=== PATIENT | female | born 1955 | race Caucasian/White ===

== ENCOUNTER 2017-08-04 11:00 | Emergency (ER) | payer MEDICARE, OTHER ==
[2017-08-04] MEDS ORDERED: Ciprofloxacin 500 MG Tab ONE (12:10)
--- NOTE | 2017-08-04 14:43 | EDM.PDOC ---
ED HPI GENERAL MEDICAL PROBLEM - General Stated Complaint: UTI Time Seen by Provider: 08/04/17 11:55 Source of Information: Reports: Patient History Limitations: Reports: No Limitations - History of Present Illness INITIAL COMMENTS - FREE TEXT/NARRATIVE: Patient is a 62 year old woman with UTI symptoms of frequency, dysuria, painful urination and right flank pain. This has been getting worse in the last day. She lives in [place] and is visiting friends here in town. She use to live in [place]. She has no other complaints today. Onset: Gradual Onset Date: 08/03/17 Onset Time: 08:00 Duration: Day(s): (1), Getting Worse Location: Reports: Abdomen Quality: Reports: Ache, Sharp (When urinating.) Severity: Moderate Improves with: Reports: Other (Pushing fluids.) Worsens with: Reports: None Context: Reports: Other (History of 3, UTI's in last 2 months and she has Crohn' s Disease and a colostomy.) Associated Symptoms: Reports: No Other Symptoms Bilateral Abdominal Pain Score (Numeric/FACES): 5 ED ROS GENERAL - Review of Systems Review Of Systems: See Below Constitutional: Reports: No Symptoms HEENT: Reports: No Symptoms Respiratory: Reports: No Symptoms Cardiovascular: Reports: No Symptoms Endocrine: Reports: No Symptoms GI/Abdominal: Reports: Abdominal Pain : Reports: Dysuria, Flank Pain, Frequency, Pain Musculoskeletal: Reports: Back Pain Skin: Reports: No Symptoms Neurological: Reports: No Symptoms Psychiatric: Reports: No Symptoms Hematologic/Lymphatic: Reports: No Symptoms Immunologic: Reports: No Symptoms ED EXAM, GENERAL - Physical Exam Exam: See Below Exam Limited By: No Limitations General Appearance: Alert, WD/WN, No Apparent Distress Eye Exam: Bilateral Eye: EOMI, Normal Fundi, Normal Inspection, PERRL Ears: Normal External Exam, Normal Canal, Hearing Grossly Normal, Normal TMs Ear Exam: Bilateral Ear: Auricle Normal, Canal Normal, TM normal Nose: Normal Inspection, Normal Mucosa, No Blood Throat/Mouth: Normal Inspection, Normal Lips, Normal Teeth, Normal Gums, Normal Oropharynx, Normal Voice, No Airway Compromise Head: Atraumatic, Normocephalic Neck: Normal Inspection, Supple, Non-Tender, Full Range of Motion Respiratory/Chest: No Respiratory Distress, Lungs Clear, Normal Breath Sounds, No Accessory Muscle Use, Chest Non-Tender Cardiovascular: Normal Peripheral Pulses, Regular Rate, Rhythm, No Edema, No Gallop, No JVD, No Murmur, No Rub Peripheral Pulses: 3+: Posterior Tibial (L), Posterior Tibial (R), Dorsalis Pedis (L), Dorsalis Pedis (R) GI/Abdominal: Normal Bowel Sounds, Soft, Non-Tender, No Organomegaly, No Distention, No Abnormal Bruit, No Mass (Female) Exam: Other (Right Flank Pain) Back Exam: CVA Tenderness (R) Extremities: Normal Inspection, Normal Range of Motion, Non-Tender, Normal Capillary Refill, No Pedal Edema Neurological: Alert, Oriented, CN II-XII Intact, Normal Cognition, Normal Gait, Normal Reflexes, No Motor/Sensory Deficits Psychiatric: Normal Affect, Normal Mood Skin Exam: Warm, Dry, Intact, Normal Color, No Rash Course - Vital Signs Text/Narrative:: Patient had a unremarkable ED stay. Her UA showed a UTI and her CBC was normal. Her urine will be cultured. She was therefore given Cipro 500 mg orally two times daily for 10 days, #20. She will push fluids and cranberry juice, take tylenol 500 mg po q 4 hours and she will follow up with her PCP and with Urology next week due to the increased frequency of these bladder infections. Last Recorded V/S: Last Vital Signs Temp 36.8 C 08/04/17 11:48 Pulse 61 08/04/17 11:48 Resp 16 08/04/17 11:48 BP 139/82 08/04/17 11:48 Pulse Ox 96 08/04/17 11:48 - Orders/Labs/Meds Orders: Active Orders 24 hr Category Date Time Status CULTURE URINE [RM] Stat Lab 08/04/17 11:30 Received URINALYSIS W/MICROSCOPIC [UA W/MICROSCOPIC] [URIN] Stat Lab 08/04/17 11:30 Ordered Labs: Laboratory Tests 08/04/17 08/04/17 Range/Units 11:30 11:50 WBC 8.1 (4.0-11.0) K/uL RBC 4.63 (3.80-5.80) M/uL Hgb 15.1 (11.5-16.5) g/dL Hct 44.5 (37.0-47.0) % MCV 96 (76-96) fL MCH 32.6 H (27.0-32.0) pg MCHC 33.9 (31.0-35.0) g/dL RDW 13.6 (11.0-16.0) % Plt Count 186 (150-500) K/uL MPV 9.9 (6.0-10.0) fL Neut % (Auto) 69.6 (45.0-70.0) % Lymph % (Auto) 19.1 L (20.0-40.0) % Levy % (Auto) 7.2 (3.0-10.0) % Eos % (Auto) 3.7 (1.0-5.0) % Baso % (Auto) 0.4 (0.0-0.5) % Neut # (Auto) 5.60 (2.00-7.50) K/uL Lymph # (Auto) 1.54 (1.50-4.00) K/uL Levy # (Auto) 0.58 (0.20-0.80) K/uL Eos # (Auto) 0.30 (0.04-0.40) K/uL Baso # (Auto) 0.03 (0.02-0.10) K/uL Urine Color Brown Urine Appearance Cloudy (CLEAR) Urine pH 6.0 (5.0-8.0) Ur Specific [place] 1.020 (1.003-1.030) Urine Protein 100 H (NEGATIVE) mg/dL Urine Glucose (UA) Negative (NEGATIVE) mg/dL Urine Ketones Negative (NEGATIVE) mg/dL Urine Occult Blood Large H (NEGATIVE) Urine Nitrite Positive H (NEGATIVE) Urine Bilirubin Small H (NEGATIVE) Urine Urobilinogen 0.2 (0.2-1.0) E.U./dL Ur Leukocyte Esterase Small H (NEGATIVE) Urine RBC Packed H /HPF Urine WBC Semi-packed H /HPF Ur Squamous Epith Cells Occasional /HPF Urine Bacteria Moderate H /HPF Departure - Departure Time of Disposition: 14:47 Disposition: Home, Self-Care 01 Condition: Good Clinical Impression: UTI (urinary tract infection) - Discharge Information Instructions: Urinary Tract Infection, Adult Referrals: PCP,None [Primary Care Provider] - Care Plan Goals: Take medications as directed. Return if symptoms persist or if you start having a fever. Push fluids. - My Orders Last 24 Hours: My Active Orders 08/04/17 11:30 CULTURE URINE [RM] Stat URINALYSIS W/MICROSCOPIC [UA W/MICROSCOPIC] [URIN] Stat - Assessment/Plan Last 24 Hours: My Active Orders 08/04/17 11:30 CULTURE URINE [RM] Stat URINALYSIS W/MICROSCOPIC [UA W/MICROSCOPIC] [URIN] Stat
== END 2017-08-04 12:15 | disposition home or self-care (01) ==
LOC: LB.ED 11:00
DX: N39.0 Urinary tract infection, site not specified (principal)
CPT/HCPCS: 36415; 81001; 85025; 87086; 87088; 87186; 99283; A9270-GY

== ENCOUNTER 2020-05-04 12:45 | Emergency (ER) | payer MEDICARE ==
--- NOTE | 2020-05-04 14:23 | EDM.PDOC ---
ED HPI GENERAL MEDICAL PROBLEM - General Chief Complaint: General Stated Complaint: COLOSTOMY BAG PLUGGED Time Seen by Provider: 05/04/20 13:35 Source of Information: Reports: Patient History Limitations: Reports: No Limitations - History of Present Illness INITIAL COMMENTS - FREE TEXT/NARRATIVE: 65 year old female with PMH crohns, rectal CA, colostomy(2010, revised in 2016), presents to ED with increased rectal/abdominal pain and bleeding. She states that this has been an issue since January and she has been trying to see GI without any luck. She has tried to remove the "sludge" in her rectum manually and with suppositories without success. She feels there is a "ball of sludge" in her rectum. She has had BRBPR intermittently since January. Denies any cough, fever, SOB, CP, N/V/D or urinary symptoms. . states the colostomy has had normal output. 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 Other Gastrointestinal History: history of cancer and chrohns disease - Past Surgical History GI Surgical History: Reports: Colostomy, Hernia, Abdominal Social & Family History - Tobacco Use Tobacco Use Status *Q: Current Every Day Tobacco User Years of Tobacco use: 40 Packs/Tins Daily: 1 - Caffeine Use Caffeine Use: Reports: Coffee - Recreational Drug Use Recreational Drug Use: No ED ROS GENERAL - Review of Systems Review Of Systems: See Below Constitutional: Reports: No Symptoms HEENT: Reports: No Symptoms Respiratory: Reports: No Symptoms Cardiovascular: Reports: No Symptoms Endocrine: Reports: No Symptoms GI/Abdominal: Reports: Mucous in Stool (per rectum, no mucus noted in colostomy bag) : Reports: No Symptoms Musculoskeletal: Reports: No Symptoms Skin: Reports: No Symptoms Neurological: Reports: No Symptoms Psychiatric: Reports: No Symptoms ED EXAM, GENERAL - Physical Exam Exam: See Below Exam Limited By: No Limitations General Appearance: Alert, Mild Distress Ears: Normal External Exam Head: Atraumatic Neck: Normal Inspection, Full Range of Motion Respiratory/Chest: No Respiratory Distress, Lungs Clear, Normal Breath Sounds Cardiovascular: Regular Rate, Rhythm, No Murmur GI/Abdominal: Normal Bowel Sounds, Tender Rectal (Female) Exam: Normal Exam, Tenderness, Other (internal rectal exam not performed due to pain and bleeding, external rectal exam unremarkable) Back Exam: Normal Inspection, Full Range of Motion. No: CVA Tenderness (R), CVA Tenderness (L) Extremities: Normal Inspection, Normal Range of Motion, Non-Tender Neurological: Alert, Oriented, Normal Cognition Psychiatric: Normal Affect, Normal Mood Skin Exam: Warm, Dry, Intact Lymphatic: No Adenopathy Course - Vital Signs Last Recorded V/S: Last Vital Signs Temp 98.6 F 05/04/20 13:08 Pulse 65 05/04/20 13:57 Resp 16 05/04/20 13:57 BP 150/74 H 05/04/20 13:57 Pulse Ox 97 05/04/20 13:57 - Orders/Labs/Meds Orders: Active Orders 24 hr Category Date Time Status Abdomen Pelvis wo Cont [CT] Stat Exams 05/04/20 14:05 Taken CORONAVIRUS COVID-19 RAPID [MOLEC] Stat Lab 05/04/20 15:21 Ordered UA RFX SUKUMAR AND CULT IF INDIC [URIN] Stat Lab 05/04/20 14:49 Ordered Labs: Laboratory Tests 05/04/20 05/04/20 Range/Units 14:15 14:15 WBC 8.1 (4.0-11.0) K/uL RBC 4.57 (3.80-5.80) M/uL Hgb 15.2 (11.5-16.5) g/dL Hct 45.3 (37.0-47.0) % MCV 99 H (76-96) fL MCH 33.3 H (27.0-32.0) pg MCHC 33.6 (31.0-35.0) g/dL RDW 13.4 (11.0-16.0) % Plt Count 222 (150-500) K/uL MPV 9.9 (6.0-10.0) fL Sodium 145 (136-145) mmol/L Potassium 3.8 (3.5-5.1) mmol/L Chloride 107 (98-107) mmol/L Carbon Dioxide 30.4 (21.0-32.0) mmol/L Anion Gap 11.4 (5.0-15.0) mmol/L BUN 12 (8-26) mg/dL Creatinine 0.89 (0.55-1.02) mg/dL Est Cr Clr Drug Dosing 51.17 mL/min Estimated GFR (MDRD) > 60 (>60) MLS/MIN BUN/Creatinine Ratio 13.5 (6-25) Glucose 80 (74-100) mg/dL Calcium 9.2 (8.5-10.1) mg/dL Total Bilirubin 0.7 (0.0-1.0) mg/dL AST 14 L (15-37) U/L ALT 26 (12-78) U/L Alkaline Phosphatase 73 (46-116) U/L Total Protein 7.2 (6.4-8.2) g/dL Albumin 3.4 (3.4-5.0) g/dL Globulin 3.8 (2.2-4.2) g/dL Albumin/Globulin Ratio 0.9 (0.8-2.0) Departure - Departure Time of Disposition: 15:36 Disposition: DC/Tfer to Hospice-Med Fac 51 Preliminary Cause of *Q: Cardiac Arrest Clinical Impression: Rectal bleed, Rectal pain, Lower abdominal pain, unspecified - Discharge Information *PRESCRIPTION DRUG MONITORING PROGRAM REVIEWED*: Not Applicable *COPY OF PRESCRIPTION DRUG MONITORING REPORT IN PATIENT PETER: Not Applicable Referrals: Isabela Soares NP [Primary Care Provider] - Forms: ED Department Discharge Sepsis Event Note (ED) - Evaluation Sepsis Screening Result: No Definite Risk - Focused Exam Vital Signs: Vital Signs Temp Pulse Resp BP Pulse Ox 05/04/20 13:57 65 16 150/74 H 97 05/04/20 13:08 98.6 F 57 L 16 148/74 H 96 - My Orders Last 24 Hours: My Active Orders 05/04/20 14:05 Abdomen Pelvis wo Cont [CT] Stat 05/04/20 14:49 UA RFX SUKUMAR AND CULT IF INDIC [URIN] Stat 05/04/20 15:21 CORONAVIRUS COVID-19 RAPID [MOLEC] Stat - Assessment/Plan Last 24 Hours: My Active Orders 05/04/20 14:05 Abdomen Pelvis wo Cont [CT] Stat 05/04/20 14:49 UA RFX SUKUMAR AND CULT IF INDIC [URIN] Stat 05/04/20 15:21 CORONAVIRUS COVID-19 RAPID [MOLEC] Stat Plan: Called [facility] for Transfer, spoke with Dr. George, he will accept the patient onto the obs unit [facility] unable to take patient due to sporadic GI coverage, patient had her colostomy revision at [place] in 2016. CT scan shows a large periostomal hernia containing the distal and transverse colon and splenic fixture, and multiple loops of small bowel. A couple of these do contain air-fluid levels. They are not dialated. No definate evidence for obstruction noted with it. Subtle fat stranding of peritoneal fat within the hernia. Mild strangulation cannot be excluded. Incidental finding of 4 cm fluid denisity in the left ovary region. Radiology states is is most likely an ovarian cyst, but follow up US is needed for diagnosis.
--- NOTE | 2020-05-04 15:44 | CT ---
DATE OF SERVICE: 05/04/2020 CLINICAL DATA: Rectal mucus with bleeding Unenhanced abdomen and pelvic CT: Multi slice axial acquisition without IV or oral contrast was performed. There are minimal atelectatic change is both lung bases. The lung bases are otherwise clear. The heart size is normal. The liver is normal size with homogeneous attenuation. No focal hepatic lesions. The gallbladder is mildly distended. No calcified gallstones. No pericholecystic fluid. The spleen appears normal. The pancreas appears normal. There is a 14 mm low-density lesion in the left adrenal which is most likely benign. The right adrenal appears normal. The right and left kidneys appear normal. No nephrocalcinosis or nephrolithiasis. No hydronephrosis or hydroureter. There is a small amount of fluid within the bladder. it appears grossly normal. The patient is status post hysterectomy. There is a 4.0 cm full oval-shaped fluid density lesion in the region of the left ovary and adnexa most likely representing an ovarian cyst. Cystic ovarian neoplasm should be considered. Follow-up ultrasound to confirm resolution or persistence is recommended. No evidence of appendicitis. There is an ostomy in the anterior abdominal wall on the left. There is a large peristomal hernia containing the distal transverse colon and splenic flexure. It also contains multiple loops of small bowel. A couple of these do contain air-fluid levels. They are not dilated. No definite evidence for obstruction associated with it. Follow-up imaging is recommended if clinically indicated. There is also very subtle fat stranding of the peritoneal fat within the hernia. Mild strangulation cannot be excluded. There is also minimal fat stranding adjacent to the sigmoid stump on the left pelvis. Localized infectious or inflammatory process cannot be excluded. No free air. No free fluid. No adenopathy. No dilated loops of bowel. No aortic aneurysm. There is a fat containing umbilical hernia. There is degenerative disc disease at multiple levels in the lumbar spine. No other significant findings. MTDD
== END 2020-05-04 16:10 | disposition hospice, inpatient (51) ==
LOC: LB.ED 12:45
DX: K62.5 Hemorrhage of anus and rectum (principal); J45.909 Unspecified asthma, uncomplicated; Z85.048 Personal history of other malignant neoplasm of rectum, rectosigmoid junction, and anus; Z72.0 Tobacco use; Z20.822 Contact with and (suspected) exposure to COVID-19
CPT/HCPCS: 36415; 74176; 80053; 81001; 85027; 99284-25; 99285; A0425; A0429; U0002

== ENCOUNTER 2020-09-11 08:46 | Emergency (ER) | payer MEDICARE ==
[2020-09-11] MEDS ORDERED: Sodium Chloride 0.9% 10 ML Syringe FLUSH PRN (09:14)
--- NOTE | 2020-09-11 09:15 | EDM.PDOC ---
ED HPI GENERAL MEDICAL PROBLEM - General Chief Complaint: General Stated Complaint: POSSIBLE STOMA INFECTION Time Seen by Provider: 09/11/20 09:15 Source of Information: Reports: Patient History Limitations: Reports: No Limitations - History of Present Illness INITIAL COMMENTS - FREE TEXT/NARRATIVE: patient presented to the ER with a c/o stomal pain. h/o CD, and rectal cancer. Underwent stoma creation in 2010 with a revision in 2015. 4 months ago, was diagnosed with a peristomal hernia,, and last month underwent a revision of her stoma - with creation of a new stoma. She returns today due to mild/moderate discomfort around the stoma and reports a small opening on the side. No fever but some chills. Normal stomal output and PO intake. pain is 4-5 out of 10 and worse when she touches it. 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 Other Gastrointestinal History: history of cancer and chrohns disease - Past Surgical History GI Surgical History: Reports: Colostomy, Hernia, Abdominal Social & Family History - Caffeine Use Caffeine Use: Reports: Coffee ED ROS GENERAL - Review of Systems Review Of Systems: See Below Constitutional: Reports: No Symptoms HEENT: Reports: No Symptoms Respiratory: Reports: No Symptoms Cardiovascular: Reports: No Symptoms GI/Abdominal: Reports: Abdominal Pain : Reports: No Symptoms Skin: Reports: No Symptoms Neurological: Reports: No Symptoms Psychiatric: Reports: No Symptoms ED EXAM, GI/ABD - Physical Exam Exam: See Below Exam Limited By: No Limitations General Appearance: Alert, WD/WN, No Apparent Distress Respiratory/Chest: No Respiratory Distress, Lungs Clear Cardiovascular: Normal Peripheral Pulses, Regular Rate, Rhythm GI/Abdominal Exam: Soft, Other (mild TTP around the stoma - no drainage, but there is evidence of wound dehisence in a small around around the stoma on the left side. no pus or blood, but covered with slough yellow tissue) Neurological: Alert, Oriented, No Motor/Sensory Deficits Course - Vital Signs Last Recorded V/S: Last Vital Signs Temp 36.8 C 09/11/20 09:29 Pulse 68 09/11/20 09:29 Resp 16 09/11/20 09:29 BP 125/68 09/11/20 09:29 Pulse Ox 96 09/11/20 09:29 - Orders/Labs/Meds Orders: Active Orders 24 hr Category Date Time Status Abdomen Pelvis wo Cont [CT] Stat Exams 09/11/20 09:54 Taken Sodium Chloride 0.9% [Saline Flush] Med 09/11/20 09:14 Active 10 ml FLUSH ASDIRECTED PRN Saline Lock Insert [OM.PC] Routine Oth 09/11/20 09:14 Ordered Medication Orders Sodium Chloride (Sodium Chloride 0.9% 10 Ml Syringe) 10 ml FLUSH ASDIRECTED PRN PRN Reason: Keep Vein Open Last Admin: 09/11/20 09:30 Dose: 10 ml Documented by: RANDY Labs: Laboratory Tests 09/11/20 09/11/20 Range/Units 09:35 09:35 WBC 8.3 (4.0-11.0) K/uL RBC 4.02 (3.80-5.80) M/uL Hgb 13.1 (11.5-16.5) g/dL Hct 39.6 (37.0-47.0) % MCV 99 H (76-96) fL MCH 32.6 H (27.0-32.0) pg MCHC 33.1 (31.0-35.0) g/dL RDW 13.7 (11.0-16.0) % Plt Count 286 D (150-500) K/uL MPV 9.7 (6.0-10.0) fL Sodium 143 (136-145) mmol/L Potassium 3.7 (3.5-5.1) mmol/L Chloride 107 (98-107) mmol/L Carbon Dioxide 29.3 (21.0-32.0) mmol/L Anion Gap 10.4 (5.0-15.0) mmol/L BUN 14 (8-26) mg/dL Creatinine 0.88 (0.55-1.02) mg/dL Est Cr Clr Drug Dosing TNP Estimated GFR (MDRD) > 60 (>60) MLS/MIN BUN/Creatinine Ratio 15.9 (6-25) Glucose 104 H (74-100) mg/dL Calcium 8.9 (8.5-10.1) mg/dL Meds: Medications Generic Name Dose Route Start Last Admin Trade Name Maggie PRN Reason Stop Dose Admin Sodium Chloride 10 ml 09/11/20 09:14 09/11/20 09:30 Sodium Chloride 0.9% 10 Ml Syringe FLUSH 10 ml ASDIRECTED PRN Administration Keep Vein Open Discontinued Medications Generic Name Dose Route Start Last Admin Trade Name Maggie PRN Reason Stop Dose Admin Ciprofloxacin 500 mg 09/11/20 11:36 09/11/20 12:10 Ciprofloxacin 500 Mg Tab PO 09/11/20 11:37 500 mg ONETIME ONE Administration Metronidazole 500 mg 09/11/20 11:36 09/11/20 12:10 Metronidazole 500 Mg Tab PO 09/11/20 11:37 500 mg ONETIME ONE Administration Metronidazole Confirm 09/11/20 12:22 Metronidazole 500 Mg Tab Administered 09/11/20 12:23 Dose 500 mg .ROUTE .STK-MED ONE - Re-Assessments/Exams Free Text/Narrative Re-Assessment/Exam: vitals WNL labs were ordered - no leukocytosis physical exam showed an intact healthy looking stoma, but the surrounding tissue on the left side are showing e/o yellow slough tissue, with a possible small wound dehiscence. intact sutures, no pus but slough yellow tissue. CT abd/pelv showed - e/o stomal colitis with SQ tissue edema in the left side. no abscess. Small bowel enteritis. local bed side wound debridement was performed - slough tissues were removed - wound was cleaned and bacitracin was applied - new stoma bag was applied given the clinical and CT findings - will start patient on PO cipro/flagyl antibiotics. called [facility] to speak with the surgeon on-call - who reviewed the images - and agreed with treatment course and recommended that she contact her surgeon early next week Departure - Departure Time of Disposition: 12:50 Disposition: Home, Self-Care 01 Condition: Good Clinical Impression: Colostomy complication, Enteritis Wound dehiscence, surgical Qualifiers: Encounter type: initial encounter Qualified Code(s): T81.31XA - Disruption of external operation (surgical) wound, not elsewhere classified, initial encounter - Discharge Information *PRESCRIPTION DRUG MONITORING PROGRAM REVIEWED*: Not Applicable *COPY OF PRESCRIPTION DRUG MONITORING REPORT IN PATIENT PETER: Not Applicable Referrals: PCP,None [Primary Care Provider] - Forms: ED Department Discharge Sepsis Event Note (ED) - Focused Exam Vital Signs: Vital Signs Temp Pulse Resp BP Pulse Ox 09/11/20 09:29 36.8 C 68 16 125/68 96 - Problem List & Annotations (1) Lower abdominal pain, unspecified SNOMED Code(s): 61896999 Code(s): R10.30 - LOWER ABDOMINAL PAIN, UNSPECIFIED Status: Acute Priority: Low Current Visit: No (2) Colostomy complication SNOMED Code(s): 96012377864329 Code(s): K94.00 - COLOSTOMY COMPLICATION, UNSPECIFIED Status: Acute Priority: Low Current Visit: Yes (3) Enteritis SNOMED Code(s): 44716614 Code(s): K52.9 - NONINFECTIVE GASTROENTERITIS AND COLITIS, UNSPECIFIED Status: Acute Priority: Low Current Visit: Yes (4) Wound dehiscence, surgical SNOMED Code(s): 296100167 Code(s): T81.31XA - DISRUPTION OF EXTERNAL OPERATION (SURGICAL) WOUND, NEC, INIT Status: Acute Priority: Low Current Visit: Yes Qualifiers: Encounter type: initial encounter Qualified Code(s): T81.31XA - Disruption of external operation (surgical) wound, not elsewhere classified, initial encounter - Problem List Review Problem List Initiated/Reviewed/Updated: Yes - My Orders Last 24 Hours: My Active Orders 09/11/20 09:14 Sodium Chloride 0.9% [Saline Flush] 10 ml FLUSH ASDIRECTED PRN Saline Lock Insert [OM.PC] Routine 09/11/20 09:54 Abdomen Pelvis wo Cont [CT] Stat - Assessment/Plan Last 24 Hours: My Active Orders 09/11/20 09:14 Sodium Chloride 0.9% [Saline Flush] 10 ml FLUSH ASDIRECTED PRN Saline Lock Insert [OM.PC] Routine 09/11/20 09:54 Abdomen Pelvis wo Cont [CT] Stat Plan: - recommend to contact your surgeon and stoma nurse early next week - start taking the antibiotics as prescribed - resume stoma dressing changes as before - return to the ER if any concerns
[2020-09-11] MEDS ORDERED: Ciprofloxacin 500 MG Tab PO ONE (11:36)
[2020-09-11] MEDS ORDERED: metroNIDAZOLE 500 MG Tab PO ONE (11:36)
[2020-09-11] MEDS ORDERED: metroNIDAZOLE 500 MG Tab ONE (12:22)
--- NOTE | 2020-09-12 07:45 | CT ---
Date of Service: 09/11/20 Clinical Data: stomal complication UNENHANCED ABDOMEN AND PELVIC CT: Multislice acquisition through the abdomen and pelvis without IV or oral contrast was performed. Comparison is made to a prior abdomen and pelvic CT dated 05/04/20. There is a 5 mm subpleural nodule in the left lung base laterally. I do not see it on the prior exam, however, prior exam does not appear to include this segment of the lung. There are atelectatic changes in the changes in the dependent portion of both lungs and in the right lower lobe laterally. The lungs are otherwise clear. No pleural effusions. The heart size is normal. The unenhanced liver appears normal. The gallbladder appears normal. The spleen appears normal. The pancreas appears normal. The right and left adrenals appear normal. The right and left kidneys appear normal. No nephrocalcinosis or nephrolithiasis. No hydronephrosis or hydroureter. The bladder is partially fluid filled. It appears normal. Patient is status post left hemicolectomy and there is an ostomy in the anterior abdominal wall on the left. A large ventral hernia on the prior exam has been reduced. There is thickening of the colon wall within the ostomy. The is also adjacent fat stranding. There is also subcutaneous fat stranding adjacent to the anterior abdominal wall on the left and flank region on the left. There is a small subcue gas collection. There are multiple fluid filled loops of small bowel within the lower abdomen and pelvis that contain air-fluid levels. A couple of these are mildly dilated. I do not see a definite transition point. No free air. No free fluid. No adenopathy. No aortic aneurysm. IMPRESSION: 1. Status post left hemicolectomy with a stoma in the left anterior abdominal wall. There is thickening of the bowel wall within the stoma and there is adjacent fat stranding. An infectious process should be considered. There is also a very small gas collection within the anterior abdominal wall laterally on the left. 2. Multiple gas-filled loops of small bowel in lower abdomen and pelvis with air-fluid levels. A couple are mildly dilated. Localized ileus or early or partial obstruction should be considered. 3. There is mild mesenteric edema. Again, infection should be considered. 4. 5 mm subpleural nodule left lung base. If the patient is high risk, a 12- month followup CT is recommended. If the patient is low risk, no followup required. [id number] [facility]
== END 2020-09-11 13:03 | disposition home or self-care (01) ==
LOC: LB.ED 08:46
DX: T81.31XA Disruption of external operation (surgical) wound, not elsewhere classified, initial encounter (principal); K52.9 Noninfective gastroenteritis and colitis, unspecified; J45.909 Unspecified asthma, uncomplicated; F17.200 Nicotine dependence, unspecified, uncomplicated; Z91.041 Radiographic dye allergy status
CPT/HCPCS: 36415; 74176; 80048; 85027; 99284; 99284-25; A9270-GY

== ENCOUNTER 2021-05-23 19:53 | Observation (INO) | payer MEDICARE ==
[2021-05-23] MEDS ORDERED: Ondansetron 4 MG/2 ML SDV IVPUSH ONE (20:45)
[2021-05-23] MEDS ORDERED: HYDROmorphone 2 MG/ML SDV IVPUSH ONE (20:45)
[2021-05-24] MEDS ORDERED: Sodium Chloride 0.9% 1,000 ML IV ONE (00:01)
[2021-05-24] MEDS ORDERED: Nicotine 21 MG/24 Hr Patch TRDERM ONE (00:05)
[2021-05-24] MEDS ORDERED: D5 1/2 NS w/ 20 mEq/L KCl 1,000 ML ONE (00:54)
[2021-05-24] MEDS: D5 1/2 NS w/ 20 mEq/L KCl 1,000 ML IV SCH ×3 (01:10→14:45)
[2021-05-24] MEDS: Ondansetron 4 MG/2 ML SDV IVPUSH PRN ×3 (02:45→12:58)
[2021-05-24] MEDS: HYDROmorphone 2 MG/ML SDV IVPUSH PRN ×3 (03:00→07:18)
[2021-05-24] MEDS ORDERED: Sodium Chloride 0.9% 10 ML Syringe FLUSH PRN (05:04)
[2021-05-24] MEDS ORDERED: HYDROmorphone 2 MG/ML SDV IVPUSH PRN (12:50)
== END 2021-05-24 22:00 | disposition left against medical advice (07) ==
LOC: LB.ED 19:53 → LB.MS 23:30 → UNDOADMOB 23:30 → LB.MS 23:54
PROVIDERS: ADMIT Surgery; ATTEND Surgery
DX: K43.3 Parastomal hernia with obstruction, without gangrene (principal); Z90.49 Acquired absence of other specified parts of digestive tract; Z93.3 Colostomy status; Z85.9 Personal history of malignant neoplasm, unspecified; Z87.19 Personal history of other diseases of the digestive system; Z20.822 Contact with and (suspected) exposure to COVID-19
CPT/HCPCS: 36415; 71045; 74019; 74176; 80053; 81001; 82150; 83690; 85025; A0425; A0429; A9270-GY; J1170; J2405; J3480; J7030; U0002